=== PATIENT | male | born 1955 | race Caucasian/White ===

== ENCOUNTER 2017-12-02 00:16 | Emergency (ER) | payer OTHER ==
--- OUTSIDE RECORDS SUMMARY | 2017-12-02 00:18 | XMS REPORT | Clinical Summary ---
:1955 Author Organization [facility] Address [address] [place] [address] Phone Care Team Providers Name Role Phone Unavailable Primary Care Provider Unavailable Allergies Active Allergy Reactions Severity Noted Date Comments Jerry Inhibitors Swelling 11/17/2016 Angioedema, unclear whether from JERRY-I or not Current Medications Prescription Sig. Disp. Refills Start Date End Date Status amlodipine-benaze Take 1 capsule by Active pril (LOTREL) mouth 2 (two) 10-20 mg per times daily . capsule glimepiride Take 4 mg by Active (AMARYL) 4 MG mouth every tablet morning before breakfast. oxybutynin Take 1 tablet (5 30 tablet 0 08/04/2017 Active (DITROPAN) 5 MG mg total) by 8 tablet mouth every 8 (eight) hours as needed (bladder spasms, urine leakage). oxybutynin Take 1 tablet (5 30 tablet 0 11/17/2016 Discontinued (DITROPAN) 5 MG mg total) by 7 tablet mouth 3 (three) times daily as needed. docusate sodium Take 1 capsule 20 capsule 0 08/04/2017 (COLACE) 100 MG (100 mg total) by 8 capsule mouth 2 (two) times daily for 10 days. traMADol (ULTRAM) Take 1 tablet (50 30 tablet 0 08/04/2017 50 mg tablet mg total) by 8 mouth every 6 (six) hours as needed for Pain for up to 10 days. Max Daily Amount: 200 mg sulfamethoxazole- Take 1 tablet 14 tablet 0 08/04/2017 trimethoprim (160 mg of 7 (BACTRIM DS) trimethoprim 800-160 mg per total) by mouth 2 tablet (two) times daily for 7 days. Active Problems Problem Noted Date Incontinence 08/03/2017 Erectile dysfunction 08/03/2017 Urethral stricture unspecified 11/17/2016 Angioedema 11/17/2016 Angioedema, initial encounter 11/17/2016 Encounters Date Type Specialty Care Team Description 08/03/2017 - Hospital Encounter General Internal Pierre Clancy, Angioedema, sequela 08/04/2017 Medicine 08/03/2017 Procedure Pass 08/03/2017 Surgery Pierre Clancy, IMPLANT,GUPP 08/02/2017 Anesthesia Event Becki Mccarthy MD 07/31/2017 Hospital Encounter Pre-Admission Pierre Clancy, Testing 07/25/2017 Hospital Encounter Pre-Admission Testing 07/21/2017 Orders Only Lacey Madrigal after 12/01/2016 Social History Tobacco Use Types Packs/Day Years Used Date Former Smoker Smokeless Tobacco: Never Used Comments: quit at age 26 Alcohol Use Drinks/Week oz/Week Comments Yes 7 Cans of beer 6.7 5 Standard drinks or equivalent Sex Assigned at Date Recorded Not on file Last Filed Vital Signs Vital Sign Reading Time Taken Blood Pressure 161/87 08/04/2017 7:34 AM RIPPER OPERATOR Pulse 59 08/04/2017 7:34 AM RIPPER OPERATOR Temperature 35.6 C (96.1 F) 08/04/2017 7:34 AM RIPPER OPERATOR Respiratory Rate 18 08/04/2017 7:34 AM RIPPER OPERATOR Oxygen Saturation 93% 08/04/2017 7:34 AM RIPPER OPERATOR Inhaled Oxygen Concentration - - Weight 105.7 kg (233 lb) 08/03/2017 7:58 AM RIPPER OPERATOR Height 177.8 cm (5' 10") 08/03/2017 7:58 AM RIPPER OPERATOR Body Mass Index 33.43 08/03/2017 7:58 AM RIPPER OPERATOR Plan of Treatment Not on file Implants Implanted Type Area Benefits Consulting Analyst Device Expiration Model / Identifier Date Serial / Lot Set Ronny Tc Marek Scrtl Cyl [id number] - [id number] Urology N/A: Penis COLOPLAST 02/02/2022 [id number] / Implanted: Qty: 1 on 08/03/2017 by Pierre Clancy MD A/S:COLOPLAST / [id number] Roseau Titan Cl 125cc [id number] - [id number] Urology Right: COLOPLAST 05/2022 [id number] / Implanted: Qty: 1 on 08/03/2017 by Pierre Clancy MD Abdomen A/S:COLOPLAST / [id number] Kit Asm [place] Pnle Imp [id number] - [id number] Urology Right: COLOPLAST 08/2021 [id number] / Implanted: Qty: 1 on 08/03/2017 by Pierre Clancy MD Abdomen A/S:COLOPLAST / [id number] Kit Acc 800 [id number] - [id number] Urology Right: [employer] 03/23/2022 [id number] / Implanted: Qty: 1 on 08/03/2017 by Pierre Clancy MD Scrotum / [id number] Cuff Occl Ibs 4.5cm [id number] - [id number] Urology Right: [employer] [id number] / Implanted: Qty: 1 on 08/03/2017 by Pierre Clancy MD Scrotum / [id number] Sphincter Urin Blln 61-70cm - [id number] Urology Right: [employer] 06/30 [id number] / Implanted: Qty: 1 on 08/03/2017 by Pierre Clancy MD Scrotum / [id number] Pump Ibs Control 800 [id number] - [id number] Urology Right: [employer] [id number] / Implanted: Qty: 1 on 08/03/2017 by Pierre Clancy MD Scrotum / [id number] Procedures Procedure Name Priority Date/Time Associated Diagnosis Comments IMPLANT,GUPS 08/03/2017 9:16 AM RIPPER OPERATOR Corporo-venous occlusive erectile dysfunction Special Needs (AMS) IMPLANT,GUPP 08/03/2017 9:16 AM RIPPER OPERATOR Corporo-venous occlusive erectile dysfunction Special Needs (AMS) after 12/01/2016 Results POC-Glucose meter (08/04/2017 7:39 AM)Only the most recent of4 resultswithin the time period is included. Component Value Ref Range POC-Glucose Meter 110Comment: TESTED AT [address] 70 - 110 mg/dL [address] Specimen Performing Laboratory Blood [facility] [address] [place] [address] Hemoglobin and hematocrit - in AM (08/04/2017 6:22 AM)Only the most recent of2 resultswithin the time period is included. Component Value Ref Range Hemoglobin 11.8 (L) 13.7 - 17.5 GM/DL Hematocrit 35.1 (L) 40.1 - 51.0 % Specimen Performing Laboratory Blood - Arm, [address] [address] Basic Metabolic Panel - In AM (08/04/2017 6:22 AM)Only the most recent of2 resultswithin the time period is included. Component Value Ref Range Sodium 138 136 - 145 meq/L Potassium 3.7 3.5 - 5.1 meq/L Chloride 110 (H) 98 - 107 meq/L CO2 20 (L) 22 - 29 meq/L BUN 14 7 - 21 mg/dL Creatinine 1.11 0.57 - 1.25 mg/dL Glucose 118 (H) 70 - 105 mg/dL Calcium 8.7 8.4 - 10.2 mg/dL EGFR 82Comment: ESTIMATED GFR IS NOT ACCURATE mL/min/1.73 sq m CREATININE CLEARANCE IN PREDICTING GLOMERULAR FILTRATION RATE. ESTIMATED GFR IS NOT APPLICABLE FOR DIALYSIS PATIENTS. Specimen Performing Laboratory Blood - Arm, [address] [address] Anaerobic culture (08/03/2017 11:12 AM) Component Value Ref Range Result No anaerobes isolated Specimen Performing Laboratory Wound - Scrotum [address] [address] Surgically obtained culture + gram stain (08/03/2017 11:12 AM) Component Value Ref Range Result No growth Gram Stain Result No WBCs Gram Stain Result No organisms seen Specimen Performing Laboratory Wound - Scrotum [address] [address] ECG 12 lead (08/03/2017 8:19 AM) Specimen Performing Laboratory GE MUSE Narrative Ventricular Rate 61 BPM Atrial Rate 61 BPM P-R Interval 204 ms QRS Duration 88 ms Q-T Interval 416 ms QTC Calculation(Bazett) 418 ms P Upton 33 degrees R Upton 29 degrees T Upton 27 degrees Normal sinus rhythm with 1st degree A-V block Nonspecific T wave abnormality Compared to the prior EKG dated Poor quality tracing in lead III precludes evaluation. Confirmed by Pedro ONOFRE BASANT ([id number]) on 08/03/2017 4:21:35 PM Procedure Note Interface, External Ris In - 08/03/2017 4:21 PM RIPPER OPERATOR Ventricular Rate 61 BPM Atrial Rate 61 BPM P-R Interval 204 ms QRS Duration 88 ms Q-T Interval 416 ms QTC Calculation(Bazett) 418 ms P Upton 33 degrees R Upton 29 degrees T Upton 27 degrees Normal sinus rhythm with 1st degree A-V block Nonspecific T wave abnormality Compared to the prior EKG dated Poor quality tracing in lead III precludes evaluation. Confirmed by Pedro ONOFRE BASANT ([id number]) on 08/03/2017 4:21:35 PM TRANSFUSION SERVICE REPORT - SCAN (08/01/2017 5:55 PM)Type and screen, automated (07/31/2017 2:50 PM) Component Value Ref Range ABO/RH AUTOMATED (BEAKER) O POSITIVE Ab Scrn NEGATIVE Specimen Performing Laboratory Blood [address] [address] aPTT (07/31/2017 2:50 PM) Component Value Ref Range PTT 32.9 22.5 - 36.0 seconds Specimen Performing Laboratory Blood [address] [address] Prothrombin time/INR (07/31/2017 2:50 PM) Component Value Ref Range Protime 15.4 (H) 11.7 - 14.7 seconds INR 1.2 <=5.9 Specimen Performing Laboratory Blood [address] [address] Narrative RECOMMENDED COUMADIN/WARFARIN INR THERAPY RANGES STANDARD DOSE: 2.0 - 3.0 Includes: PROPHYLAXIS for venous thrombosis, systemic embolization; TREATMENT for venous thrombosis and/or pulmonary embolus. HIGH RISK: Target INR is 2.5-3.5 for patients with mechanical heart valves. Urinalysis w/ Microscopic (07/31/2017 2:47 PM) Component Value Ref Range Color, UA Light Yellow Clarity, UA Clear Specific Conway, UA 1.010 1.001 - 1.035 pH, UA 8.0 5.0 - 8.0 Protein, UA Negative Negative Glucose, UA Negative Negative Ketones, UA Negative Negative Bilirubin, UA Negative Negative Blood, UA Negative Negative Nitrite, UA Negative Negative Leukocytes, UA Small (A) Negative Urobilinogen, UA 0.2 0.2 - 1.0 mg/dL RBC, UA 2 /HPF WBC, UA 7 /HPF Mucus Rare Specimen Source Specimen Performing Laboratory Urine [address] [address] Urine culture (07/31/2017 2:47 PM) Component Value Ref Range Result Result >100,000 col/mL Coagulase negative Staphylococcus (A) Specimen Performing Laboratory Urine - Urine, Unspecified Source [address] [address] Narrative 10-19,000 col/mL skin [place] Organism Antibiotic Method Susceptibility Coagulase negative Clindamycin 0.5: Susceptible Staphylococcus Coagulase negative Erythromycin <=0.25: Susceptible Staphylococcus Coagulase negative Levofloxacin >=8: Resistant Staphylococcus Coagulase negative Linezolid 2: Susceptible Staphylococcus Coagulase negative Nitrofurantoin <=16: Susceptible Staphylococcus Coagulase negative Oxacillin <=0.25: Susceptible Staphylococcus Coagulase negative Rifampin <=0.5: Susceptible Staphylococcus Coagulase negative Tetracycline 2: Susceptible Staphylococcus Coagulase negative Trimethoprim + >=320: Resistant Staphylococcus Sulfamethoxazole Coagulase negative Vancomycin 2: Susceptible Staphylococcus after 12/01/2016
--- OUTSIDE RECORDS SUMMARY | 2017-12-02 00:19 | XMS REPORT ---
:1955 Author Organization [facility] Address [address] [place] [address] Care Team Providers Name Role Phone PETAR DAILEY Unavailable Unavailable VIOLETTE SMITH Unavailable Unavailable Problems This patient has no known problems. Allergies, Adverse Reactions, Alerts This patient has no known allergies or adverse reactions. Medications This patient has no known medications. Results Test Description Test Time Test Comments Text Results Atomic Results Result Comments ANAEROBIC CULTURE 2017-08-07 06:08:00 Test Item Value Reference Range Comments CULTURE (BEAKER) (test chol=9661) No anaerobes isolated SURGICALLY OBTAINED CULTURE + GRAM [id number] 11:16:00 Test Item Value Reference Range Comments CULTURE (BEAKER) (test dfhm=8422) No growth GRAM STAIN RESULT (BEAKER) (test No WBCs gkyg=6576) GRAM STAIN RESULT (BEAKER) (test No organisms seen msuc=09770) POCT-GLUCOSE [id number] 08:12:00 Test Item Value Reference Range Comments POC-GLUCOSE METER (BEAKER) 110 mg/dL 70-110 TESTED AT [facility] [address] [place] [address] (test dfap=5909) [facility] [address] BASIC METABOLIC [id number] 06:52:00 Test Item Value Reference Range Comments SODIUM (BEAKER) (test 138 meq/L 136-145 jbjq=582) POTASSIUM (BEAKER) (test 3.7 meq/L 3.5-5.1 ssox=744) CHLORIDE (BEAKER) (test 110 meq/L 98-107 hnro=441) CO2 (BEAKER) (test 20 meq/L 22-29 hzzm=401) BLOOD UREA NITROGEN 14 mg/dL 7-21 (BEAKER) (test drin=507) CREATININE (BEAKER) (test 1.11 mg/dL 0.57-1.25 exbb=140) GLUCOSE RANDOM (BEAKER) 118 mg/dL 70-105 (test rffl=243) CALCIUM (BEAKER) (test 8.7 mg/dL 8.4-10.2 kzym=399) EGFR (BEAKER) (test 82 mL/min/1.73 sq m ESTIMATED GFR IS NOT guuk=1659) ACCURATE CREATININE CLEARANCE IN PREDICTING GLOMERULAR FILTRATION RATE. ESTIMATED GFR IS NOT APPLICABLE FOR DIALYSIS PATIENTS. HEMOGLOBIN AND [id number] 06:35:00 Test Item Value Reference Range Comments HEMOGLOBIN (BEAKER) (test qbjf=159) 11.8 GM/DL 13.7-17.5 HEMATOCRIT (BEAKER) (test mist=367) 35.1 % 40.1-51.0 POCT-GLUCOSE [id number] 21:16:00 Test Item Value Reference Range Comments POC-GLUCOSE METER (BEAKER) 147 mg/dL 70-110 TESTED AT [address] (test edjq=4823) [place] [address] POCT-GLUCOSE [id number] 18:01:00 Test Item Value Reference Range Comments POC-GLUCOSE METER (BEAKER) 163 mg/dL 70-110 TESTED AT [address] (test aqsb=8883) [place] [id number] URINE [id number] 14:45:00 Test Item Value Reference Range Comments CULTURE (BEAKER) (test dppl=7312) Clindamycin (test code=10) Erythromycin (test code=4) Levofloxacin (test code=22) Linezolid (test code=40) Nitrofurantoin (test code=23) Oxacillin (test code=14) Rifampin (test code=43) Tetracycline (test code=2) Trimethoprim + Sulfamethoxazole (test code=47) Vancomycin (test code=13) CULTURE (BEAKER) (test oqlb=7780) >100,000 col/mL Coagulase negative Staphylococcus 10-19,000 col/mL skin floraPOCT-GLUCOSE [id number] 07:50:00 Test Item Value Reference Range Comments POC-GLUCOSE METER (BEAKER) 129 mg/dL 70-110 TESTED AT [address] (test hcho=6546) [place] [address] BASIC METABOLIC [id number] 16:15:00 Test Item Value Reference Range Comments SODIUM (BEAKER) (test 141 meq/L 136-145 dqmb=840) POTASSIUM (BEAKER) (test 3.8 meq/L 3.5-5.1 leht=482) CHLORIDE (BEAKER) (test 107 meq/L 98-107 tehz=151) CO2 (BEAKER) (test 25 meq/L 22-29 cfwe=432) BLOOD UREA NITROGEN 14 mg/dL 7-21 (BEAKER) (test fnxh=263) CREATININE (BEAKER) (test 1.16 mg/dL 0.57-1.25 pafr=920) GLUCOSE RANDOM (BEAKER) 48 mg/dL 70-105 (test ejrr=817) CALCIUM (BEAKER) (test 10.0 mg/dL 8.4-10.2 iemn=942) EGFR (BEAKER) (test 78 mL/min/1.73 sq m ESTIMATED GFR IS NOT fing=3862) ACCURATE CREATININE CLEARANCE IN PREDICTING GLOMERULAR FILTRATION RATE. ESTIMATED GFR IS NOT APPLICABLE FOR DIALYSIS PATIENTS. HEMOGLOBIN AND [id number] 16:11:00 Test Item Value Reference Range Comments HEMOGLOBIN (BEAKER) (test fcwz=766) 13.1 GM/DL 13.7-17.5 HEMATOCRIT (BEAKER) (test isvt=310) 40.7 % 40.1-51.0 [id number] 15:40:00 Test Item Value Reference Range Comments PARTIAL THROMBOPLASTIN TIME (BEAKER) (test 32.9 seconds 22.5-36.0 exif=837) PROTHROMBIN [id number] 15:39:00 Test Item Value Reference Range Comments PROTIME (BEAKER) (test mrnl=972) 15.4 seconds 11.7-14.7 INR (BEAKER) (test jsxf=127) 1.2 <=5.9 RECOMMENDED COUMADIN/WARFARIN INR THERAPY RANGESSTANDARD DOSE: 2.0 - 3.0 Includes: PROPHYLAXIS forvenous thrombosis, systemic embolization; TREATMENT for venous thrombosis and/or pulmonary embolus.HIGH RISK: Target INR is 2.5-3.5 for patients with mechanical heart valves.URINALYSIS W/ [id number] 15 :24:00 Test Item Value Reference Range Comments COLOR (BEAKER) (test tlra=792) Light Yellow CLARITY (BEAKER) (test ivlw=817) Clear SPECIFIC GRAVITY UA (BEAKER) (test rmxm=710) 1.010 1.001-1.035 PH UA (BEAKER) (test pkcz=689) 8.0 5.0-8.0 PROTEIN UA (BEAKER) (test gvmg=113) Negative Negative GLUCOSE UA (BEAKER) (test auau=475) Negative Negative KETONES UA (BEAKER) (test odef=112) Negative Negative BILIRUBIN UA (BEAKER) (test bxvj=802) Negative Negative BLOOD UA (BEAKER) (test wufv=445) Negative Negative NITRITE UA (BEAKER) (test vskz=054) Negative Negative LEUKOCYTE ESTERASE UA (BEAKER) (test csjn=296) Small Negative UROBILINOGEN UA (BEAKER) (test tbyj=488) 0.2 mg/dL 0.2-1.0 RBC UA (BEAKER) (test qgip=806) 2 /HPF WBC UA (BEAKER) (test impr=150) 7 /HPF MUCUS (BEAKER) (test zvlv=6314) Rare SOURCE(BEAKER) (test gxhm=0038) POCT-GLUCOSE [id number] 13:19:00 Test Item Value Reference Range Comments POC-GLUCOSE METER (BEAKER) 137 mg/dL 70-110 TESTED AT [facility] [address] [facility] (test vtqr=5727) [facility] [address] [id number] 06:58:00 Test Item Value Reference Range Comments PHOSPHORUS (BEAKER) (test cbxs=530) 3.3 mg/dL 2.3-4.7 [id number] 06:58:00 Test Item Value Reference Range Comments MAGNESIUM (BEAKER) (test qkam=149) 2.3 mg/dL 1.6-2.6 BASIC METABOLIC [id number] 06:58:00 Test Item Value Reference Range Comments SODIUM (BEAKER) (test 136 meq/L 136-145 lebx=669) POTASSIUM (BEAKER) (test 4.2 meq/L 3.5-5.1 gwmh=277) CHLORIDE (BEAKER) (test 108 meq/L 98-107 qzcn=755) CO2 (BEAKER) (test 17 meq/L 22-29 hrqj=431) BLOOD UREA NITROGEN 12 mg/dL 7-21 (BEAKER) (test xrli=187) CREATININE (BEAKER) (test 1.08 mg/dL 0.57-1.25 ztlt=144) GLUCOSE RANDOM (BEAKER) 141 mg/dL 70-105 (test gvav=579) CALCIUM (BEAKER) (test 9.3 mg/dL 8.4-10.2 aiqr=904) EGFR (BEAKER) (test 85 mL/min/1.73 sq m ESTIMATED GFR IS NOT yvrn=5879) ACCURATE CREATININE CLEARANCE IN PREDICTING GLOMERULAR FILTRATION RATE. ESTIMATED GFR IS NOT APPLICABLE FOR DIALYSIS PATIENTS. POCT-GLUCOSE [id number] 06:54:00 Test Item Value Reference Range Comments POC-GLUCOSE METER (BEAKER) 142 mg/dL 70-110 TESTED AT [facility] [address] [facility] (test srac=5522) [facility] [address] [id number] 05:56:00 Test Item Value Reference Range Comments PHOSPHORUS (BEAKER) (test isbm=230) 3.2 mg/dL 2.3-4.7 [id number] 05:56:00 Test Item Value Reference Range Comments MAGNESIUM (BEAKER) (test denm=463) 2.3 mg/dL 1.6-2.6 BASIC METABOLIC [id number] 05:56:00 Test Item Value Reference Range Comments SODIUM (BEAKER) (test 135 meq/L 136-145 hdwr=847) POTASSIUM (BEAKER) (test 4.2 meq/L 3.5-5.1 yzla=377) CHLORIDE (BEAKER) (test 108 meq/L 98-107 jnzt=083) CO2 (BEAKER) (test 17 meq/L 22-29 kger=938) BLOOD UREA NITROGEN 11 mg/dL 7-21 (BEAKER) (test zinf=254) CREATININE (BEAKER) (test 1.02 mg/dL 0.57-1.25 rtpi=845) GLUCOSE RANDOM (BEAKER) 145 mg/dL 70-105 (test rzfk=060) CALCIUM (BEAKER) (test 9.1 mg/dL 8.4-10.2 bquv=087) EGFR (BEAKER) (test 90 mL/min/1.73 sq m ESTIMATED GFR IS NOT lqwi=1050) ACCURATE CREATININE CLEARANCE IN PREDICTING GLOMERULAR FILTRATION RATE. ESTIMATED GFR IS NOT APPLICABLE FOR DIALYSIS PATIENTS. CBC W/PLT COUNT & AUTO [id number] 04:56:00 Test Item Value Reference Range Comments WHITE BLOOD CELL COUNT (BEAKER) (test ydyx=982) 3.8 K/ L 4.0-10.0 RED BLOOD CELL COUNT (BEAKER) (test syee=664) 4.43 M/ L 4.20-5.80 HEMOGLOBIN (BEAKER) (test iwbw=760) 13.6 GM/DL 13.0-16.8 HEMATOCRIT (BEAKER) (test athl=849) 43.5 % 40.0-50.0 MEAN CORPUSCULAR VOLUME (BEAKER) (test osux=775) 98.1 fL 82.0-98.0 MEAN CORPUSCULAR HEMOGLOBIN (BEAKER) (test 30.6 pg 27.0-33.0 dkla=453) MEAN CORPUSCULAR HEMOGLOBIN CONC (BEAKER) (test 31.2 GM/DL 32.0-36.0 wlmn=759) RED CELL DISTRIBUTION WIDTH (BEAKER) (test 12.2 % 10.3-14.2 dflv=332) PLATELET COUNT (BEAKER) (test znzv=492) 208 K/CU MM 150-430 MEAN PLATELET VOLUME (BEAKER) (test bmqm=200) 7.1 fL 6.5-10.5 NUCLEATED RED BLOOD CELLS (BEAKER) (test 0 /100 WBC 0-0 prnh=318) NEUTROPHILS RELATIVE PERCENT (BEAKER) (test 83 % mynd=863) LYMPHOCYTES RELATIVE PERCENT (BEAKER) (test 13 % ymsu=406) MONOCYTES RELATIVE PERCENT (BEAKER) (test 3 % ictk=160) EOSINOPHILS RELATIVE PERCENT (BEAKER) (test 0 % dxub=776) BASOPHILS RELATIVE PERCENT (BEAKER) (test 1 % vaxo=641) NEUTROPHILS ABSOLUTE COUNT (BEAKER) (test 3.16 K/ L 1.80-8.00 eqpk=682) LYMPHOCYTES ABSOLUTE COUNT (BEAKER) (test 0.48 K/ L 1.48-4.50 elwp=795) MONOCYTES ABSOLUTE COUNT (BEAKER) (test 0.13 K/ L 0.00-1.30 pqon=237) EOSINOPHILS ABSOLUTE COUNT (BEAKER) (test 0.00 K/ L 0.00-0.50 gmbv=074) BASOPHILS ABSOLUTE COUNT (BEAKER) (test 0.03 K/ L 0.00-0.20 gbqk=011) 0.00CALCIUM, [id number] 04:34:00 Test Item Value Reference Range Comments CALCIUM IONIZED (BEAKER) (test dswb=475) 1.08 mmol/L 1.12-1.27 PH, BLOOD (BEAKER) (test eklq=5944) 7.38 POCT-GLUCOSE [id number] 00:56:00 Test Item Value Reference Range Comments POC-GLUCOSE METER (BEAKER) 142 mg/dL 70-110 TESTED AT [facility] [address] [place] [address] (test woii=1032) [facility] [address] URINE [id number] 09:48:00 Test Item Value Reference Range Comments CULTURE (BEAKER) (test ENTEROBACTER AEROGENES >100,000 col/mL yumq=2131) Enterobacter aerogenes Amikacin (test code=1) Aztreonam (test code=32) Cefepime (test code=51) Cefoxitin (test code=68) Ceftazidime (test code=27) Ceftriaxone (test code=52) Ertapenem (test code=38) Gentamicin (test code=18) Levofloxacin (test code=22) Meropenem (test code=34) Nitrofurantoin (test code=23) Piperacillin + Tazobactam (test code=29) Tetracycline (test code=2) Tobramycin (test code=25) Trimethoprim + Sulfamethoxazole (test code=47) CULTURE (BEAKER) (test ENTEROBACTER AEROGENES >100,000 col/mL rpkf=68155) Enterobacter aerogenesof a second type Amikacin (test code=1) Aztreonam (test code=32) Cefepime (test code=51) Cefoxitin (test code=68) Ceftazidime (test code=27) Ceftriaxone (test code=52) Ertapenem (test code=38) Gentamicin (test code=18) Levofloxacin (test code=22) Meropenem (test code=34) Nitrofurantoin (test code=23) Piperacillin + Tazobactam (test code=29) Tetracycline (test code=2) Tobramycin (test code=25) Trimethoprim + Sulfamethoxazole (test code=47) BASIC METABOLIC [id number] 16:20:00 Test Item Value Reference Range Comments SODIUM (BEAKER) (test 139 meq/L 136-145 jbfk=383) POTASSIUM (BEAKER) (test 3.8 meq/L 3.5-5.1 urbb=203) CHLORIDE (BEAKER) (test 108 meq/L 98-107 vnqu=329) CO2 (BEAKER) (test 20 meq/L 22-29 kxjn=420) BLOOD UREA NITROGEN 12 mg/dL 7-21 (BEAKER) (test vlun=084) CREATININE (BEAKER) (test 1.04 mg/dL 0.57-1.25 gmnj=002) GLUCOSE RANDOM (BEAKER) 91 mg/dL 70-105 (test jrug=810) CALCIUM (BEAKER) (test 9.6 mg/dL 8.4-10.2 xocp=579) EGFR (BEAKER) (test 88 mL/min/1.73 sq m ESTIMATED GFR IS NOT cvvn=8235) ACCURATE CREATININE CLEARANCE IN PREDICTING GLOMERULAR FILTRATION RATE. ESTIMATED GFR IS NOT APPLICABLE FOR DIALYSIS PATIENTS. CBC W/PLT COUNT & AUTO [id number] 16:11:00 Test Item Value Reference Range Comments WHITE BLOOD CELL COUNT (BEAKER) (test qkby=100) 3.1 K/ L 4.0-10.0 RED BLOOD CELL COUNT (BEAKER) (test wmzh=030) 3.97 M/ L 4.20-5.80 HEMOGLOBIN (BEAKER) (test pnoe=356) 12.9 GM/DL 13.0-16.8 HEMATOCRIT (BEAKER) (test nekd=192) 39.0 % 40.0-50.0 MEAN CORPUSCULAR VOLUME (BEAKER) (test lgre=696) 98.1 fL 82.0-98.0 MEAN CORPUSCULAR HEMOGLOBIN (BEAKER) (test 32.5 pg 27.0-33.0 rvdh=050) MEAN CORPUSCULAR HEMOGLOBIN CONC (BEAKER) (test 33.2 GM/DL 32.0-36.0 duoe=818) RED CELL DISTRIBUTION WIDTH (BEAKER) (test 12.3 % 10.3-14.2 xzya=325) PLATELET COUNT (BEAKER) (test dndi=272) 265 K/CU MM 150-430 MEAN PLATELET VOLUME (BEAKER) (test iymp=661) 6.8 fL 6.5-10.5 NUCLEATED RED BLOOD CELLS (BEAKER) (test 0 /100 WBC 0-0 ucac=508) NEUTROPHILS RELATIVE PERCENT (BEAKER) (test 38 % rqav=483) LYMPHOCYTES RELATIVE PERCENT (BEAKER) (test 44 % luhx=139) MONOCYTES RELATIVE PERCENT (BEAKER) (test 17 % qdxe=683) EOSINOPHILS RELATIVE PERCENT (BEAKER) (test 2 % sygn=504) BASOPHILS RELATIVE PERCENT (BEAKER) (test 0 % hrwv=236) NEUTROPHILS ABSOLUTE COUNT (BEAKER) (test 1.17 K/ L 1.80-8.00 brns=928) LYMPHOCYTES ABSOLUTE COUNT (BEAKER) (test 1.36 K/ L 1.48-4.50 iodn=844) MONOCYTES ABSOLUTE COUNT (BEAKER) (test 0.52 K/ L 0.00-1.30 rsvi=026) EOSINOPHILS ABSOLUTE COUNT (BEAKER) (test 0.06 K/ L 0.00-0.50 pamy=970) BASOPHILS ABSOLUTE COUNT (BEAKER) (test 0.00 K/ L 0.00-0.20 pmli=127) 0.00URINALYSIS W/ [id number] 16:11:00 Test Item Value Reference Range Comments COLOR (BEAKER) (test qiun=731) Light Yellow CLARITY (BEAKER) (test mvmb=858) Clear SPECIFIC GRAVITY UA (BEAKER) (test pkqc=091) 1.011 1.001-1.035 PH UA (BEAKER) (test oqhq=887) 6.0 5.0-8.0 PROTEIN UA (BEAKER) (test tldn=466) Negative Negative GLUCOSE UA (BEAKER) (test sxxl=023) 100 mg/dL Negative KETONES UA (BEAKER) (test qvce=802) Negative Negative BILIRUBIN UA (BEAKER) (test dbwt=773) Negative Negative BLOOD UA (BEAKER) (test afvi=337) Negative Negative NITRITE UA (BEAKER) (test edde=039) Negative Negative LEUKOCYTE ESTERASE UA (BEAKER) (test vhre=143) Moderate Negative UROBILINOGEN UA (BEAKER) (test fodi=715) 0.2 mg/dL 0.2-1.0 RBC UA (BEAKER) (test kmcj=402) < /HPF WBC UA (BEAKER) (test rcoz=812) 4 /HPF MUCUS (BEAKER) (test rxte=1796) Rare SQUAMOUS EPITHELIAL (BEAKER) (test ctmz=084) < /HPF SOURCE(BEAKER) (test yhhr=3302)
[2017-12-02] MEDS ORDERED: ASPIRIN 81 MG CHEWABLE TABLET ONE (00:40)
[2017-12-02] MEDS ORDERED: AMLODIPINE 5 MG TAB ONE (00:40)
[2017-12-02 01:38] LABS: Absolute Lymphocytes (CBC) 1.6 K/uL (0.7-4.9); Absolute Monocytes 0.5 K/uL (0.1-1.3); Basophils % 1.3 % (0-1.3); Hematocrit 39.9 % (39.6-49.0); Lymphocytes % 49.4 % (15.3-44.8); MCH 32.3 pg (27.0-35.0); MCV 96.4 fL (80-100); Monocytes % 16.7 % (3.3-12.3); RBC Red Blood Cell Count 4.14 M/uL (4.33-5.43)
[2017-12-02 01:39] LABS: Protime INR 1.08
[2017-12-02 01:58] LABS: Potassium 3.4 mEq/L (3.6-5.0)
[2017-12-02 02:04] LABS: Albumin 4.6 g/dL (3.2-5.5); Bilirubin Direct 0.1 mg/dL (0-0.2); Bilirubin Total 0.4 mg/dL (0.3-1.2); Magnesium 1.9 mg/dL (1.8-2.5); Protein, Total 8.9 g/dL (6.0-8.3)
[2017-12-02 02:05] LABS: CKMB Creatine Kinase MB 2.8 ng/ml (0.3-4.0)
--- NOTE | 2017-12-02 02:06 | EDPHYS ---
Physician Documentation [facility] Name: Moshe Scales Age: 62 yrs Sex: Male : 1955 Arrival Date: 12/02/2017 Time: 00:20 Bed 6 Private MD: ED Physician Shar Valenzuela HPI: 12/02 00:39 This 62 yrs old Male presents to ER via Ambulatory with complaints of R HAND valeria NUMBNESS. 00:39 The patient or guardian reports thumb, 2 nd and 3rd digits tingling. The complaints valeria affect the IP of right thumb, MCP of right thumb, PIP of right index finger, MCP of right index finger, DIP of right middle finger, PIP of right middle finger and MCP of right middle finger. Context: The problem was sustained outdoors. Onset: The symptoms/episode began/occurred just prior to arrival. Modifying factors: The symptoms are alleviated by nothing, the symptoms are aggravated by nothing. Associated signs and symptoms: The patient has no apparent associated signs or symptoms. Severity of symptoms: At their worst the symptoms were mild, in the emergency department the symptoms are unchanged. Historical: - Allergies: 00:29 No Known Allergies; tl2 - Home Meds: 00:29 Glimepiride Oral [Active]; amlodipine 10 mg tab 1 tab once daily [Active]; tl2 - PMHx: 00:29 Hypertension; Diabetes - NIDDM; tl2 - PSHx: 00:29 prostate; tl2 - Immunization history:: Adult Immunizations up to date. - Social history:: Smoking status: Patient/guardian denies using tobacco. - Family history:: not pertinent. ROS: 00:39 Constitutional: Negative for fever, chills, and weight loss, Eyes: Negative for injury, valeria pain, redness, and discharge, ENT: Negative for injury, pain, and discharge, Neck: Negative for injury, pain, and swelling, Cardiovascular: Negative for chest pain, palpitations, and edema, Respiratory: Negative for shortness of breath, cough, wheezing, and pleuritic chest pain, Abdomen/GI: Negative for abdominal pain, nausea, vomiting, diarrhea, and constipation, Back: Negative for injury and pain, : Negative for injury, bleeding, discharge, and swelling, Skin: Negative for injury, rash, and discoloration, Neuro: Negative for headache, weakness, numbness, tingling, and seizure, Psych: Negative for depression, anxiety, suicide ideation, homicidal ideation, and hallucinations, Allergy/Immunology: Negative for hives, rash, and allergies, Endocrine: Negative for neck swelling, polydipsia, polyuria, polyphagia, and marked weight changes, Hematologic/Lymphatic: Negative for swollen nodes, abnormal bleeding, and unusual bruising. 00:39 MS/extremity: Positive for tingling, of the dorsal aspect of distal phalanx of right thumb, dorsal aspect of proximal phalanx of right thumb, dorsal aspect of distal phalanx of right index finger, dorsal aspect of middle phalanx of right index finger, dorsal aspect of proximal phalanx of right index finger, dorsal aspect of distal phalanx of right middle finger, dorsal aspect of middle phalanx of right middle finger, dorsal aspect of proximal phalanx of right middle finger and right middle fingernail. Exam: 00:39 Constitutional: This is a well developed, well nourished patient who is awake, alert, valeria and in no acute distress. Head/Face: Normocephalic, atraumatic. Eyes: Pupils equal round and reactive to light, extra-ocular motions intact. Lids and lashes normal. Conjunctiva and sclera are non-icteric and not injected. Cornea within normal limits. Periorbital areas with no swelling, redness, or edema. ENT: Nares patent. No nasal discharge, no septal abnormalities noted. Tympanic membranes are normal and external auditory canals are clear. Oropharynx with no redness, swelling, or masses, exudates, or evidence of obstruction, uvula midline. Mucous membranes moist. Neck: Trachea midline, no thyromegaly or masses palpated, and no cervical lymphadenopathy. Supple, full range of motion without nuchal rigidity, or vertebral point tenderness. No Meningismus. Chest/axilla: Normal chest wall appearance and motion. Nontender with no deformity. No lesions are appreciated. Cardiovascular: Regular rate and rhythm with a normal S1 and S2. No gallops, murmurs, or rubs. Normal PMI, no JVD. No pulse deficits. Respiratory: Lungs have equal breath sounds bilaterally, clear to auscultation and percussion. No rales, rhonchi or wheezes noted. No increased work of breathing, no retractions or nasal flaring. Abdomen/GI: Soft, non-tender, with normal bowel sounds. No distension or tympany. No guarding or rebound. No evidence of tenderness throughout. Back: No spinal tenderness. No costovertebral tenderness. Full range of motion. Skin: Warm, dry with normal turgor. Normal color with no rashes, no lesions, and no evidence of cellulitis. Neuro: Awake and alert, GCS 15, oriented to person, place, time, and situation. Cranial nerves II-XII grossly intact. Motor strength 5/5 in all extremities. Sensory grossly intact. Cerebellar exam normal. Normal gait. Psych: Awake, alert, with orientation to person, place and time. Behavior, mood, and affect are within normal limits. 00:39 Musculoskeletal/extremity: ROM: no acute changes, intact in all extremities, full active range of motion, full passive range of motion, Circulation is intact in all extremities. Sensation intact. Compartment Syndrome exam of affected extremity: is normal. DVT Exam: No signs of deep vein thrombosis. no pain, no swelling, no tenderness, negative Homans' sign noted on exam, no appreciated bluish discoloration, no erythema, no increased warmth. Vital Signs: 00:29 BP 164 / 94; Pulse 68; Resp 18; Temp 97.8(O); Pulse Ox 98% on R/A; Weight 104.33 kg; tl2 Height 5 ft. 10 in. (177.80 cm); Pain 0/10; 01:33 BP 142 / 96; Pulse 60; Resp 16; Pulse Ox 94% on R/A; Pain 0/10; tl1 02:18 BP 134 / 91; Pulse 62; Resp 16; Temp 97.9(O); Pulse Ox 98% on R/A; Pain 0/10; tl1 00:29 Body Mass Index 33.00 (104.33 kg, 177.80 cm) tl2 NIH Stroke Scale Scores: 01:41 NIHSS Score: 0 valeria MDM: 00:35 Patient medically screened. [facility] 00:42 Data reviewed: vital signs, nurses notes, lab test result(s), EKG, radiologic studies, valeria plain films. 12/02 00:37 Order name: Basic Metabolic Panel 2 12/02 00:37 Order name: BNP 2 12/02 00:37 Order name: CBC with Diff 2 12/02 00:37 Order name: Ckmb tl2 12/02 00:37 Order name: CPK tl2 12/02 00:37 Order name: LFT's tl2 12/02 00:37 Order name: Magnesium tl2 12/02 00:37 Order name: PT-INR; Complete Time: 01:41 tl2 12/02 00:37 Order name: Ptt, Activated; Complete Time: 01:41 tl2 12/02 00:37 Order name: Troponin (emerg Dept Use Only); Complete Time: 02:04 tl2 12/02 00:37 Order name: Basic Metabolic Panel EDMS 12/02 00:37 Order name: BNP B-Type Natriuretic Peptide; Complete Time: 02:04 EDMS 12/02 00:37 Order name: CBC with Automated Diff EDMS 12/02 00:37 Order name: CKMB Creatine Kinase MB EDMS 12/02 00:37 Order name: XRAY Chest (1 view) tl2 12/02 00:37 Order name: EKG; Complete Time: 00:38 tl2 12/02 00:37 Order name: Cardiac monitoring; Complete Time: 00:38 tl2 12/02 00:37 Order name: EKG - Nurse/Tech; Complete Time: 00:38 tl2 12/02 00:37 Order name: IV Saline Lock; Complete Time: 00:38 tl2 12/02 00:37 Order name: Labs collected and sent; Complete Time: 00:38 tl2 12/02 00:37 Order name: O2 Per Protocol; Complete Time: 00:38 tl2 12/02 00:37 Order name: O2 Sat Monitoring; Complete Time: 00:38 tl2 12/02 00:37 Order name: Creatine Phosphokinase EDMS 12/02 01:40 Order name: Manual Differential EDMS Administered Medications: 00:48 Drug: Aspirin Chewable Tablet 162 mg Route: PO; tl1 02:20 Follow up: Response: No adverse reaction; No change in condition tl1 00:49 Drug: Norvasc 10 mg Route: PO; tl1 02:20 Follow up: Response: No adverse reaction; No change in condition tl1 02:15 Drug: Potassium Chloride 20 mEq Route: PO; tl1 02:20 Follow up: Response: No adverse reaction; No change in condition tl1 Disposition: 12/02/17 02:05 Discharged to Home. Impression: Pain in right hand - tingling, Hypokalemia. - Condition is Stable. - Discharge Instructions: Type 2 Diabetes Mellitus, Adult, Hypertension, Aspirin and Your Heart, Type 2 Diabetes Mellitus, Adult, [id number], Hypertension During . - Prescriptions for Norvasc 5 mg Oral Tablet - take 1 tablet by ORAL route once daily; 20 tablet. - Medication Reconciliation Form, Thank You Letter, Antibiotic Education, Prescription Opioid Use form. - Follow up: Private Physician; When: 2 - 3 days; Reason: Recheck today's complaints, Continuance of care, Re-evaluation by your physician. Follow up: Brady Ruth; When: 2 - 3 days; Reason: Recheck today's complaints, Continuance of care, Re-evaluation by your physician. - Problem is new. - Symptoms have improved. NIH Stroke Scale - NIH Stroke Score Date: 12/02/2017 Time: 01:41 Total Score = 0 1a. Level of Consciousness (LOC) - 0(Alert) 1b. Level of Consciousness (LOC) (Year \T\ Age) - 0(Both) 1c. LOC Commands (Open \T\ Closes Eyes/Tomb Maker Helper) - 0(Both) 2. Best Gaze (Lateral Gaze Paresis) - 0(Normal) 3. Visual Field Loss - 0(No visual loss) 4. Facial Palsy - 0(Normal) 5a. Left Arm: Motor (10-second hold) - 0(No drift) 5b. Right Arm: Motor (10-second hold) - 0(No drift) 6a. Left Leg: Motor (5-second hold - always test supine) - 0(No drift) 6b. Right Leg: Motor (5-second hold - always test supine) - 0(No drift) 7. Limb Ataxia (finger/nose \T\ heel/staton - test with eyes open) - 0(Absent) 8. Sensory Loss (pinprick arms/legs/face) - 0(Normal) 9. Best Language: Aphasia (description/naming/reading) - 0(No aphasia) 10. Dysarthria (speech clarity - read or repeat words) - 0(Normal) 11. Extinction and Inattention (visual/tactile/auditory/spatial/personal) - 0(No abnormality) Initials: valeria Signatures: Dispatcher [employer] EDShar Carroll MD MD cha Lasagna, Tonya RN RN tl1 Grace Galloway, RN RN tl2
--- NOTE | 2017-12-02 02:06 | ER ---
Nurse's Notes [facility] Name: Moshe Scales Age: 62 yrs Sex: Male : 1955 Arrival Date: 12/02/2017 Time: 00:20 Bed 6 Private MD: Diagnosis: Pain in right hand-tingling;Hypokalemia Presentation: 12/02 00:27 Presenting complaint: Patient states: I was fishing and I noticed my 3 fingers on my tl2 right hand started tingling. Denies pain, headache or other symptoms. Transition of care: patient was not received from another setting of care. Onset of symptoms was December 01, 2017 at 23:00. Initial Sepsis Screen: Does the patient meet any 2 criteria? No. Patient's initial sepsis screen is negative. Does the patient have a suspected source of infection? No. Patient's initial sepsis screen is negative. Care prior to arrival: None. 00:27 Method Of Arrival: Ambulatory tl2 00:27 Acuity: JAY 3 tl2 Triage Assessment: 00:29 General: Appears in no apparent distress. comfortable, Behavior is calm, cooperative, tl2 appropriate for age. Pain: Denies pain. Neuro: Level of Consciousness is awake, alert, obeys commands, Oriented to person, place, time, situation, Denies weakness blurred vision dizziness, headache. Cardiovascular: Denies chest pain. Respiratory: Airway is patent Respiratory effort is even, unlabored, Respiratory pattern is regular, symmetrical. GI: No signs and/or symptoms were reported involving the gastrointestinal system. : No signs and/or symptoms were reported regarding the genitourinary system. Derm: Skin is normal. Musculoskeletal: Circulation, motion, and sensation intact. Reports tingling in first, second and third finger of right hand. 00:29 Neuro: Speech is normal, Facial symmetry appears normal, Pupils are PERRLA, Tingling in tl2 first, second and third digits right hand. Historical: - Allergies: 00:29 No Known Allergies; tl2 - Home Meds: 00:29 Glimepiride Oral [Active]; amlodipine 10 mg tab 1 tab once daily [Active]; tl2 - PMHx: 00:29 Hypertension; Diabetes - NIDDM; tl2 - PSHx: 00:29 prostate; tl2 - Immunization history:: Adult Immunizations up to date. - Social history:: Smoking status: Patient/guardian denies using tobacco. - Family history:: not pertinent. Screenin:33 Abuse screen: Denies threats or abuse. Nutritional screening: No deficits noted. tl2 Tuberculosis screening: No symptoms or risk factors identified. Fall Risk None identified. Assessment: 00:33 General: see triage assessment. tl2 02:18 Reassessment: Patient and/or family updated on plan of care and expected duration. Pain tl1 level reassessed. Patient is alert, oriented x 3, equal unlabored respirations, skin warm/dry/pink. Patient denies pain at this time. Patient states feeling better. Patient states symptoms have improved. Vital Signs: 00:29 BP 164 / 94; Pulse 68; Resp 18; Temp 97.8(O); Pulse Ox 98% on R/A; Weight 104.33 kg; tl2 Height 5 ft. 10 in. (177.80 cm); Pain 0/10; 01:33 BP 142 / 96; Pulse 60; Resp 16; Pulse Ox 94% on R/A; Pain 0/10; tl1 02:18 BP 134 / 91; Pulse 62; Resp 16; Temp 97.9(O); Pulse Ox 98% on R/A; Pain 0/10; tl1 00:29 Body Mass Index 33.00 (104.33 kg, 177.80 cm) tl2 NIH Stroke Scale Scores: 01:41 NIHSS Score: 0 [facility] ED Course: 00:20 Patient arrived in ED. al2 00:28 Triage completed. tl2 00:29 Arm band placed on right wrist. tl2 00:33 Patient has correct armband on for positive identification. Placed in gown. Bed in low tl2 position. Call light in reach. Side rails up X 1. 00:33 Inserted saline lock: 20 gauge in right antecubital area, using aseptic technique. tl2 Blood collected. placed by STACI Godfrey. 00:35 Shar Valenzuela MD is Attending Physician. [facility] 00:48 Bekah Ann RN is Primary Nurse. tl1 01:20 X-ray completed. Portable x-ray completed in exam room. Patient tolerated procedure jw2 well. 01:26 XRAY Chest (1 view) In Process Unspecified. EDMS 01:34 No apparent distress. Resting quietly. Appears to be sleeping. tl1 02:05 Brady Ruth MD is Referral Physician. valeria 02:19 No provider procedures requiring assistance completed. IV discontinued, intact, tl1 bleeding controlled, No redness/swelling at site. Pressure dressing applied. Administered Medications: 00:48 Drug: Aspirin Chewable Tablet 162 mg Route: PO; tl1 02:20 Follow up: Response: No adverse reaction; No change in condition tl1 00:49 Drug: Norvasc 10 mg Route: PO; tl1 02:20 Follow up: Response: No adverse reaction; No change in condition tl1 02:15 Drug: Potassium Chloride 20 mEq Route: PO; tl1 02:20 Follow up: Response: No adverse reaction; No change in condition tl1 Outcome: 02:05 Discharge ordered by . valeria 02:19 Discharged to home ambulatory. tl1 02:19 Condition: good 02:19 Discharge instructions given to patient, Instructed on discharge instructions, follow up and referral plans. medication usage, Demonstrated understanding of instructions, follow-up care, medications, Prescriptions given X 1. 02:21 Patient left the ED. tl1 NIH Stroke Scale - NIH Stroke Score Date: 12/02/2017 Time: 01:41 Total Score = 0 1a. Level of Consciousness (LOC) - 0(Alert) 1b. Level of Consciousness (LOC) (Year \T\ Age) - 0(Both) 1c. LOC Commands (Open \T\ Closes Eyes/General Claims Agent) - 0(Both) 2. Best Gaze (Lateral Gaze Paresis) - 0(Normal) 3. Visual Field Loss - 0(No visual loss) 4. Facial Palsy - 0(Normal) 5a. Left Arm: Motor (10-second hold) - 0(No drift) 5b. Right Arm: Motor (10-second hold) - 0(No drift) 6a. Left Leg: Motor (5-second hold - always test supine) - 0(No drift) 6b. Right Leg: Motor (5-second hold - always test supine) - 0(No drift) 7. Limb Ataxia (finger/nose \T\ heel/staton - test with eyes open) - 0(Absent) 8. Sensory Loss (pinprick arms/legs/face) - 0(Normal) 9. Best Language: Aphasia (description/naming/reading) - 0(No aphasia) 10. Dysarthria (speech clarity - read or repeat words) - 0(Normal) 11. Extinction and Inattention (visual/tactile/auditory/spatial/personal) - 0(No abnormality) Initials: valeria Signatures: Dispatcher [employer] Shar Hilton MD MD cha Lasagna, Tonya RN RN tl1 Estrella Bryant2 Grace Galloway RN RN tl2 Irma Garcia2
[2017-12-02] MEDS ORDERED: POTASSIUM CL SA 10 MEQ TAB PO ONE (02:16)
[2017-12-02 03:38] LABS: Blood Morphology Comment NOT SEEN (NOT SEEN); Platelet Estimate ADEQ
--- NOTE | 2017-12-02 07:14 | EKG ---
Test Date: 2017-12-02 Test Time: 00:31:32 E Marketing Specialist: ESPERANZA MEASUREMENT RESULTS: Intervals: Rate: 68 IA: 196 QRSD: 92 QT: 410 QTc: 435 [place]: P: 76 IA: 196 QRS: -18 T: 53 INTERPRETIVE STATEMENTS: Sinus rhythm with occasional premature ventricular complexes Otherwise normal ECG Compared to ECG 08/15/2006 10:12:31 Ventricular premature complex(es) now present Left ventricular hypertrophy no longer present Electronically Signed On 12-02-17 07:14:01 CDT by Brady Ruth
--- NOTE | 2017-12-02 08:40 | RAD REPORT ---
EXAM DESCRIPTION: Jennifer Single View12/02/2017 1:25 am CLINICAL HISTORY: Chest pain COMPARISON: September 2016 FINDINGS: The lungs appear clear of acute infiltrate. The heart is normal size IMPRESSION: No acute abnormalities displayed
== END 2017-12-02 02:21 | disposition home or self-care (01) ==
LOC: ER 00:16
DX: M79.641 Pain in right hand (principal); E87.6 Hypokalemia; I10 Essential (primary) hypertension; E11.9 Type 2 diabetes mellitus without complications
CPT/HCPCS: 36415; 71045; 80048; 80076; 82550; 82553; 83735; 83880; 84484; 85025; 85610; 85730; 93005; 99284